=== PATIENT | female | born 1955 | race Caucasian/White ===

== ENCOUNTER 2016-08-07 15:33 | Emergency (ER) | payer MEDICAID ==
[2016-08-07 15:44] VITALS: TEMP 97.9
--- NOTE | 2016-08-07 15:52 | EDPHY ---
H & P Stated Complaint: insomnia/joint pain l knee pain(seen at for same) Time Seen by Provider: 08/07/16 15:51 HPI/ROS: CHIEF COMPLAINT: Right wrist pain, left knee pain HISTORY OF PRESENT ILLNESS: The patient presents to the ED with right wrist pain and left knee pain. She has a fairly complicated past medical history including a hypercoagulable state which she currently takes Coumadin for. She has had several weeks of insomnia. The patient did see her primary care provider [facility] who recommended she begin low dose of prednisone. She has not yet picked that medication up. Patient has no complaints of fever. She denies focal numbness. The patient denies pleuritic chest pain or difficulty breathing. She denies melena or bloody stool. REVIEW OF SYSTEMS: A comprehensive 10 point review of systems is otherwise negative aside from elements mentioned in the history of present illness. Source: Patient Exam Limitations: No limitations - Personal History Current Tetanus/Diphtheria Vaccine: Yes Tetanus Vaccine Date: 2010 - Medical/Surgical History Hx Asthma: No Hx Chronic Respiratory Disease: Yes Hx Diabetes: Yes Hx Cardiac Disease: No Hx Renal Disease: No Hx Cirrhosis: No Hx Alcoholism: No Hx HIV/AIDS: No Hx Splenectomy or Spleen Trauma: No Other PMH: narcoplepsy, degenerative disc disease, questionable history of lymphoma, COPD, PE, NIELS, ETOPIC PREG. - Social History Smoking Status: Never smoked - Physical Exam Exam: General Appearance: Alert, no distress Eyes: Pupils equal and round no pallor or injection ENT, Mouth: Mucous membranes moist Respiratory: There are no retractions, lungs are clear to auscultation Cardiovascular: Regular rate and rhythm Gastrointestinal: Abdomen is soft and nontender, no masses, bowel sounds normal Neurological: A&O, normal motor function, normal sensory exam, normal cranial nerves Skin: Warm and dry, no rashes Musculoskeletal: Neck is supple nontender Extremities: Tenderness to palpation right wrist, no associated swelling, erythema or limited range of motion noted. Small effusion left knee, normal range of motion, not warm, no evidence of cellulitis or septic arthritis. Constitutional: Initial Vital Signs Temperature (C) 36.6 C 08/07/16 15:41 Heart Rate 100 08/07/16 15:41 Respiratory Rate 20 08/07/16 15:41 Blood Pressure 107/95 H 08/07/16 15:41 O2 Sat (%) 97 08/07/16 15:41 O2 Delivery Mode Room Air Allergies/Adverse Reactions: Penicillins Allergy (Unknown, Verified 08/07/16 15:39) Sulfa (Sulfonamide Antibiotics) Allergy (Unknown, Verified 08/07/16 15:39) tramadol Allergy (Unknown, Verified 08/07/16 15:39) warfarin sodium [From Coumadin] Allergy (Unknown, Verified 08/07/16 15:39) albuterol Allergy (Verified 08/07/16 15:39) Iodinated Contrast Media - Oral and [IV Dye, Iodine Containing Contrast ] Allergy (Verified 08/07/16 15:39) NSAIDS (Non-Steroidal Anti-Inflamma [Nsaids] Allergy (Verified 08/07/16 15:39) Home Medications: Medication Instructions Recorded Lovenox 08/11/13 Omeprazole 08/11/13 Phenergan 08/11/13 Tylenol 08/11/13 Zofran 08/11/13 Metformin 1000 mg 08/07/16 Viamin B12 08/07/16 Vitamin D3 08/07/16 Wellbutrin 100mg (*) 08/07/16 Medical Decision Making - Diagnostics Imaging Results: Right wrist x-ray: Images reviewed by myself, negative for acute fracture. Left knee x-ray: Images reviewed by myself, negative for acute fracture. ED Course/Re-evaluation: The patient presents to the ED with complaints of atraumatic left knee and wrist pain. The patient has no clinical evidence of a septic arthritis. The patient is otherwise well-appearing at. X-rays demonstrate no evidence of an acute fracture. The patient's primary care provider has recommended that she begin a low dose of prednisone which I feel would be a reasonable next step. The patient will be instructed to take her medications as prescribed. She should follow up with her primary care provider for further evaluation. Differential Diagnosis: Differential diagnosis considered includes occult fracture, septic arthritis, osteoarthritis Departure - Departure Disposition: Home, Routine, Self-Care Clinical Impression: Chronic pain of left knee, Right wrist pain, Hypercoagulable state Condition: Good Instructions: Musculoskeletal Pain (ED) Additional Instructions: 1. Your x-rays demonstrate no evidence of significant arthritis or fracture. 2. Please take prednisone as directed by your primary care provider. 3. Please follow up with your regular physician at [facility] regarding your chronic lung disease. Referrals: RADHA FORD [Other] - As per Instructions
[2016-08-07 17:04] VITALS: BP 142/100; PULSE 91; RESP 16; O2SAT 94
== END 2016-08-07 17:05 | disposition home or self-care (01) ==
DX: M25.562 Pain in left knee (principal); M25.531 Pain in right wrist; G89.29 Other chronic pain; D68.59 Other primary thrombophilia; J44.9 Chronic obstructive pulmonary disease, unspecified; E11.9 Type 2 diabetes mellitus without complications; Z79.84 Long term (current) use of oral hypoglycemic drugs

== ENCOUNTER 2016-08-09 16:55 | Emergency (ER) | payer MEDICAID ==
--- NOTE | 2016-08-09 17:45 | EDPHY ---
H & P Time Seen by Provider: 08/09/16 17:25 HPI/ROS: CHIEF COMPLAINT: insomnia, leg swelling HISTORY OF PRESENT ILLNESS: 60-year-old female presents to the emergency department complaining difficulty sleeping for the past month. Patient reports that this happens every year. She was seen at [facility] 2 weeks ago and had bloods drawn and has not heard back from them with the results. Patient states she has left them any messages and has not had any return phone call. Patient was seen in the emergency department 2 days ago for the same complaint. Patient denies fevers or chills, no abdominal pain, no shortness of breath or chest pain she denies melena or bloody stool. Patient is also complaining bilateral lower leg swelling and tenderness. Patient has a history DVTs and PEs. She is on daily Lovenox. She is concerned she has a blood clot. REVIEW OF SYSTEMS: A comprehensive 10 point review of systems is otherwise negative aside from elements mentioned in the history of present illness. Smoking Status: Never smoked Physical Exam: Physical Exam Gen: Alert and Oriented, NAD HEENT: PERRL, moist mucous membranes NECK: no meningismus CV: regular rate and regular rhythm PULM: CTAB, no wheezes ABDOMEN: soft, non tender to palpation, BS present BACK: No CVA tenderness NEURO: Neurologically grossly intact EXTREMITIES: normal appearing, no joint swelling or erythema, full range of motion of all joints SKIN: No rash PSYCH: answers questions appropriately. Constitutional: Initial Vital Signs Temperature (C) 36.6 C 08/09/16 17:01 Heart Rate 94 08/09/16 17:01 Respiratory Rate 22 H 08/09/16 17:01 Blood Pressure 132/87 H 08/09/16 17:01 O2 Sat (%) 94 08/09/16 17:01 O2 Delivery Mode Room Air Allergies/Adverse Reactions: Penicillins Allergy (Unknown, Verified 08/09/16 16:59) Sulfa (Sulfonamide Antibiotics) Allergy (Unknown, Verified 08/09/16 16:59) tramadol Allergy (Unknown, Verified 08/09/16 16:59) warfarin sodium [From Coumadin] Allergy (Unknown, Verified 08/09/16 16:59) albuterol Allergy (Verified 08/09/16 16:59) Iodinated Contrast Media - Oral and [IV Dye, Iodine Containing Contrast ] Allergy (Verified 08/09/16 16:59) NSAIDS (Non-Steroidal Anti-Inflamma [Nsaids] Allergy (Verified 08/09/16 16:59) Home Medications: Medication Instructions Recorded Lovenox 08/11/13 Omeprazole 08/11/13 Phenergan 08/11/13 Tylenol 08/11/13 Zofran 08/11/13 Metformin 1000 mg 08/07/16 Viamin B12 08/07/16 Vitamin D3 08/07/16 Wellbutrin 100mg (*) 08/07/16 Prednisone 08/09/16 MDM/Departure - MDM Imaging Results: Imaging Impressions Extremity Venous Study 08/09/16 18:15 Impression: No evidence of deep vein thrombosis in either lower extremity. Results called and discussed with Imelda Egan NP on 08/09/2016 at 20:12 Imaging: Discussed imaging studies w/ school age program associate Radiologist ED Course/Re-evaluation: Ultrasound of bilateral lower extremities negative for DVT. I spoke with case management who attempted to call [facility] but they are closed for the evening. Case management will contact [facility] in the morning to schedule an appointment for the patient and they will call the patient with this appointment time. - Depart Disposition: Home, Routine, Self-Care Clinical Impression: Insomnia Qualifiers: Insomnia type: unspecified Qualified Code(s): G47.00 - Insomnia, unspecified Condition: Good Instructions: Insomnia (ED) Additional Instructions: There is no evidence of blood clots on the ultrasound of your legs. The hospice case manager from the hospital will call you tomorrow with your appointment at [facility]. Referrals: NIKKI FORD MD [Other] - As per Instructions
[2016-08-09 20:31] VITALS: BP 132/76; PULSE 82; RESP 17; TEMP 98.1; O2SAT 95
== END 2016-08-09 20:31 | disposition home or self-care (01) ==
DX: G47.00 Insomnia, unspecified (principal)

== ENCOUNTER 2016-08-20 03:30 | Emergency (ER) | payer MEDICAID ==
[2016-08-20] MEDS ORDERED: ONDANSETRON 4 MG/2 ML VIAL IVP ONE (03:40)
[2016-08-20] MEDS ORDERED: NS 1,000 ML IV ONE (03:40)
--- NOTE | 2016-08-20 03:43 | EDPHY ---
H & P HPI/ROS: HPI CHIEF COMPLAINT: Abdominal pain HISTORY OF PRESENT ILLNESS: This patient very pleasant 52-year-old female significant past medical history for pulmonary hypertension, heart failure, hypertension, pulmonary embolisms on Lovenox shots, she presents emergency room with abdominal pain. States for the past month she has been having trouble to keep food down with persistent nausea vomiting diffuse crampy colicky abdominal pain. She noticed some bruising around her umbilicus. She denies this being from her Lovenox shots. She was trying to get to [facility] this morning with the bus stop was unable to get on the bus due to a passed issue she decided to call 911 instead was brought to the emergency room at [facility] for abdominal pain. She denies fever. Chest pain or shortness of breath. Main complaint is diffuse colicky abdominal pain in arm able to tolerate p.o. x1 month. States she had a bowel movement 4 days ago. Of note she additionally tells me she was at [facility] on the 10th for "fluid on her lungs." Denies history of stroke or heart attack. Past Medical History: Pulmonary hypertension, diastolic heart failure, pulmonary embolism, hypertension, ?stage 4 lymphoma. Past Surgical History: Gallbladder removal, ectopic . Social History: Denies daily use of drugs alcohol tobacco products lives locally here [place] Family History: Noncontributory ROS REVIEW OF SYSTEMS: A comprehensive 10 point review of systems is otherwise negative aside from elements mentioned in the history of present illness. Exam Constitutional triage nursing summary reviewed, vital signs reviewed, awake/ alert. Eyes normal conjunctivae and sclera, EOMI, PERRLA. HENT normal inspection, atraumatic, moist mucus membranes, no epistaxis, neck supple/ no meningismus, no raccoon eyes. Respiratory clear to auscultation bilaterally, normal breath sounds, no respiratory distress, no wheezing. Cardiovascular rate normal, regular rhythm, no murmur, no edema, distal pulses normal. Gastrointestinal I do not appreciate tenderness on exam, around her umbilicus is there is ecchymosis, no signs of cellulitis or infection no abscess, no induration, soft, non-tender, no rebound, no guarding, normal bowel sounds, no distension, no pulsatile mass. Genitourinary no CVA tenderness. Musculoskeletal no midline vertebral tenderness, full range of motion, no calf swelling, no tenderness of extremities, no meningismus, good pulses, neurovascularly intact. Skin pink, warm, & dry, no rash, skin atraumatic. Neurologic awake, alert and oriented x 3, AAOx3, moves all 4 extremities equally, motor intact, sensory intact, CN II-XII intact, normal cerebellar, normal vision, normal speech. Psychiatric normal mood/affect. Heme/Lymph/Immune no lymphadenopathy. Differential diagnosis includes but is not limited to and in no particular order : Bowel obstruction, appendicitis, gallbladder disease, diverticulitis, colitis , enteritis, perforated viscus, gastritis, GERD, esophagitis, urinary tract infection, pyelonephritis, kidney stones Medical Decision Making: Plan for this patient IV establishment, blood work, CT scan abdomen pelvis will check blood work of abdomen labs, urinalysis as well. Re-evaluation: CT scan of the abdomen pelvis with IV contrast. The results of the study are negative for acute intra-abdominal acute pathology or inflammation constipation present. The study was read by Dr. Tomas. I viewed the images myself on the PACS system. [id number]: Re-evaluation at this time abdomen remained soft nontender. She is drinking without any difficulty. No vomiting. Vital signs are stable. Blood work reviewed is normal. His CT scan abdomen pelvis with IV contrast shows no acute intra-abdominal inflammatory process. I do recommend that she follows up with the primary care doctor as always return emergency room if there is any worsening symptoms questions or concerns. I have no evidence of intra- abdominal acute process. Blood work reassuring, CT scan reassuring. Urine dip was negative. Will outpatient go home given her abdomen is soft she is drinking she is agreeable with this plan. Source: Patient - Personal History Tetanus Vaccine Date: 2010 - Medical/Surgical History Hx Asthma: No Hx Chronic Respiratory Disease: Yes Hx Diabetes: Yes Hx Cardiac Disease: No Hx Renal Disease: No Hx Cirrhosis: No Hx Alcoholism: No Hx HIV/AIDS: No Hx Splenectomy or Spleen Trauma: No Other PMH: narcoplepsy, degenerative disc disease, questionable history of lymphoma, COPD, PE, NIELS, ETOPIC PREG. - Social History Smoking Status: Never smoked Constitutional: Initial Vital Signs Temperature (C) 36.4 C 08/20/16 03:30 Heart Rate 92 08/20/16 03:30 Respiratory Rate 20 08/20/16 03:30 Blood Pressure 133/90 H 08/20/16 03:30 O2 Sat (%) 92 08/20/16 03:30 O2 Delivery Mode Room Air O2 (L/minute) 2 Allergies/Adverse Reactions: Penicillins Allergy (Unknown, Verified 08/09/16 16:59) Sulfa (Sulfonamide Antibiotics) Allergy (Unknown, Verified 08/09/16 16:59) tramadol Allergy (Unknown, Verified 08/09/16 16:59) warfarin sodium [From Coumadin] Allergy (Unknown, Verified 08/09/16 16:59) albuterol Allergy (Verified 08/09/16 16:59) Iodinated Contrast Media - Oral and [IV Dye, Iodine Containing Contrast ] Allergy (Verified 08/09/16 16:59) NSAIDS (Non-Steroidal Anti-Inflamma [Nsaids] Allergy (Verified 08/09/16 16:59) Home Medications: Medication Instructions Recorded Lovenox 08/11/13 Omeprazole 08/11/13 Phenergan 08/11/13 Tylenol 08/11/13 Zofran 08/11/13 Viamin B12 08/07/16 Vitamin D3 08/07/16 Wellbutrin 100mg (*) 08/07/16 Ativan 08/20/16 Flexeril 08/20/16 Insulin Regular, Human 08/20/16 Prevalite Powder 08/20/16 Medical Decision Making - Data Points Laboratory Results: Laboratory Results 08/20/16 04:30 08/20/16 04:20 08/20/16 08/20/16 08/20/16 04:30 04:30 04:30 WBC 6.76 10^3/uL 10^3/uL (3.80-9.50) RBC 4.24 10^6/uL 10^6/uL (4.18-5.33) Hgb 13.1 g/dL g/dL (12.6-16.3) POC Hgb 13.3 gm/dL gm/dL (12.3-15.9) Hct 39.0 % % (38.0-47.0) POC Hct 39 % % (35.5-47.5) MCV 92.0 fL fL (81.5-99.8) MCH 30.9 pg pg (27.9-34.1) MCHC 33.6 g/dL g/dL (32.4-36.7) RDW 13.4 % % (11.5-15.2) Plt Count 253 10^3/uL 10^3/uL (150-400) MPV 9.2 fL fL (8.7-11.7) Neut % (Auto) 53.1 % % (39.3-74.2) Lymph % (Auto) 35.9 % % (15.0-45.0) [place] % (Auto) 7.2 % % (4.5-13.0) Eos % (Auto) 2.5 % % (0.6-7.6) Baso % (Auto) 0.6 % % (0.3-1.7) Nucleat RBC Rel Count 0.0 % % (0.0-0.2) Absolute Neuts (auto) 3.58 10^3/uL 10^3/uL (1.70-6.50) Absolute Lymphs (auto) 2.43 10^3/uL 10^3/uL (1.00-3.00) Absolute Monos (auto) 0.49 10^3/uL 10^3/uL (0.30-0.80) Absolute Eos (auto) 0.17 10^3/uL 10^3/uL (0.03-0.40) Absolute Basos (auto) 0.04 10^3/uL 10^3/uL (0.02-0.10) Absolute Nucleated RBC 0.00 10^3/uL 10^3/uL (0-0.01) Immature Gran % 0.7 % % (0.0-1.1) Immature Gran # 0.05 10^3/uL 10^3/uL (0.00-0.10) PT 13.8 SEC SEC (12.0-15.0) INR 1.07 (0.83-1.16) APTT 25.8 SEC SEC (23.0-38.0) VBG Lactic Acid POC Sodium 143 mEq/L mEq/L (134-144) Sodium POC Potassium 3.5 mEq/L mEq/L (3.3-5.0) Potassium POC Chloride 102 mEq/L mEq/L (96-108) Chloride Carbon Dioxide Anion Gap POC BUN 17 mg/dL mg/dL (7-23) BUN Creatinine POC Creatinine 0.6 mg/dL mg/dL (0.6-1.2) Estimated GFR Glucose POC Glucose 202 mg/dL H mg/dL (70-100) Calcium Total Bilirubin Conjugated Bilirubin Unconjugated Bilirubin AST ALT Alkaline Phosphatase Total Protein Albumin Lipase 08/20/16 08/20/16 04:30 04:20 WBC RBC Hgb POC Hgb Hct POC Hct MCV MCH MCHC RDW Plt Count MPV Neut % (Auto) Lymph % (Auto) [place] % (Auto) Eos % (Auto) Baso % (Auto) Nucleat RBC Rel Count Absolute Neuts (auto) Absolute Lymphs (auto) Absolute Monos (auto) Absolute Eos (auto) Absolute Basos (auto) Absolute Nucleated RBC Immature Gran % Immature Gran # PT INR APTT VBG Lactic Acid 1.4 mmol/L mmol/L (0.7-2.1) POC Sodium Sodium 139 mEq/L mEq/L (134-144) POC Potassium Potassium 3.8 mEq/L mEq/L (3.5-5.2) POC Chloride Chloride 105 mEq/L mEq/L (97-110) Carbon Dioxide 26 mEq/l mEq/l (22-31) Anion Gap 8 mEq/L mEq/L (8-16) POC BUN BUN 17 mg/dL mg/dL (7-23) Creatinine 0.6 mg/dL mg/dL (0.6-1.0) POC Creatinine Estimated GFR > 60 Glucose 201 mg/dL H mg/dL (70-100) POC Glucose Calcium 8.6 mg/dL mg/dL (8.5-10.4) Total Bilirubin 0.5 mg/dL mg/dL (0.1-1.4) Conjugated Bilirubin 0.3 mg/dL mg/dL (0.0-0.5) Unconjugated Bilirubin 0.2 mg/dL mg/dL (0.0-1.1) AST 38 IU/L IU/L (14-46) ALT 49 IU/L IU/L (9-52) Alkaline Phosphatase 80 IU/L IU/L (38-126) Total Protein 6.4 g/dL g/dL (6.3-8.2) Albumin 3.5 g/dL g/dL (3.5-5.0) Lipase 83.0 IU/L IU/L (23-300) Medications Given: Discontinued Medications Hydrocodone Bitart/Acetaminophen ([place] 5/325) 1 tab PO EDNOW ONE Stop: 08/20/16 04:26 Last Admin: 08/20/16 04:32 Dose: 1 tab Diphenhydramine HCl (Benadryl Injection) 25 mg IVP EDNOW ONE Stop: 08/20/16 03:47 Last Admin: 08/20/16 04:32 Dose: 25 mg Sodium Chloride (Ns) 1,000 mls @ 0 mls/hr IV ONCE ONE PRN Reason: Wide Open Stop: 08/20/16 03:41 Last Admin: 08/20/16 04:30 Dose: 1,000 mls Ondansetron HCl (Zofran) 4 mg IVP EDNOW ONE Stop: 08/20/16 03:41 Last Admin: 08/20/16 04:30 Dose: 4 mg Point of Care Test Results: 08/20/16 04:30 POC Sodium 143 POC Potassium 3.5 POC Chloride 102 POC BUN 17 POC Creatinine 0.6 POC Glucose 202 H Departure - Departure Disposition: Home, Routine, Self-Care Clinical Impression: Abdominal pain Qualifiers: Abdominal location: generalized Qualified Code(s): R10.84 - Generalized abdominal pain Condition: Good Instructions: Acute Abdominal Pain (ED) Additional Instructions: 1. [place] diet for next 24- forty eight hours. 2. Return emergency room if you have any worsening symptoms questions or concerns. Referrals: Patient,NotPresent [Unknown] - As per Instructions
[2016-08-20] MEDS ORDERED: HYDROCODONE/APAP 5/325 TAB PO ONE (04:25)
[2016-08-20] MEDS ORDERED: IOPAMIDOL (ISOVUE-300) 100 ML BTL ONE (04:34)
[2016-08-20 04:43] LABS: % IMMATURE GRANULYOCYTES 0.7 % (0.0-1.1); ABSOLUTE IMMATURE GRANULOCYTES 0.05 10^3/uL (0.00-0.10); ADD DIFF? NO; ADD MORPH? NO; ADD SCAN? NO; ATYPICAL LYMPHOCYTE FLAG 20 (0-99); FRAGMENT RBC FLAG 0 (0-99); HEMOGLOBIN 13.1 g/dL (12.6-16.3); LEFT SHIFT FLG 0 (0-99); LIPEMIA HEMOLYSIS FLAG 80 (0-99); MEAN CELL HEMOGLOBIN 30.9 pg (27.9-34.1); MEAN CELL HEMOGLOBIN CONCENTR. 33.6 g/dL (32.4-36.7); MEAN PLATELET VOLUME 9.2 fL (8.7-11.7); PLATELET CLUMPS FLAG 10 (0-99); PLATELET COUNT 253 10^3/uL (150-400); RED BLOOD CELL COUNT 4.24 10^6/uL (4.18-5.33); RED CELL DISTRIBUTION WIDTH 13.4 % (11.5-15.2)
[2016-08-20 04:52] LABS: INR 1.07 (0.83-1.16); PROTIME(PATIENT) 13.8 SEC (12.0-15.0)
[2016-08-20 04:53] LABS: APTT 25.8 SEC (23.0-38.0)
[2016-08-20 05:00] LABS: ALANINE AMINOTRANSFERASE 49 IU/L (9-52); ALBUMIN 3.5 g/dL (3.5-5.0); ALKALINE PHOSPHATASE 80 IU/L (38-126); ANION GAP 8 mEq/L (8-16); ASPARTATE AMINOTRANSFERASE 38 IU/L (14-46); BILIRUBIN,TOTAL 0.5 mg/dL (0.1-1.4); BILIRUBIN-CONJUGATED 0.3 mg/dL (0.0-0.5); BILIRUBIN-UNCONJUGATED 0.2 mg/dL (0.0-1.1); CALCIUM 8.6 mg/dL (8.5-10.4); CARBON DIOXIDE 26 mEq/l (22-31); CHLORIDE 105 mEq/L (97-110); CREATININE 0.6 mg/dL (0.6-1.0); GLOMERULAR FILTRATION RATE > 60; GLUCOSE 201 mg/dL (70-100); POTASSIUM 3.8 mEq/L (3.5-5.2); SODIUM 139 mEq/L (134-144); TOTAL PROTEIN 6.4 g/dL (6.3-8.2)
[2016-08-20 06:22] VITALS: BP 158/88; PULSE 88; RESP 18; O2SAT 94
[2016-08-20 06:23] VITALS: TEMP 98.6
== END 2016-08-20 06:32 | disposition home or self-care (01) ==
LOC: EDUNIT#
DX: R10.84 Generalized abdominal pain (principal); J44.9 Chronic obstructive pulmonary disease, unspecified; E11.9 Type 2 diabetes mellitus without complications; Z79.4 Long term (current) use of insulin
CPT/HCPCS: 82947-QW; 96374; J1200; J2405; Q9967

== ENCOUNTER 2016-08-28 12:06 | Emergency (ER) | payer MEDICAID ==
[2016-08-28 12:31] VITALS: RESP 16; TEMP 97.2
--- NOTE | 2016-08-28 12:41 | EDPHY ---
HPI/HX/ROS/PE/MDM Narrative: CHIEF COMPLAINT: Syncopes HISTORY OF PRESENT ILLNESS: The patient is a 60 y/o female, with a history of personality disorder, arriving via EMS complaining of multiple syncopes or "black out" episodes over the last 2 days. She reports she has a history that includes stage 4 lymphoma, COPD, pulmonary hypertension, and diabetes. She says multiple times over the last couple days she has been "losing time;" she states , "I'd be present and then it would be an hour later" while sitting. She denies history of seizures. She denies chest pain, fever, or worse than normal dyspnea. Patient is a poor historian, quite tangential, and frequently discusses events from many years previously. She has multiple other complaints including resolved skin peeling and what she describes as a yeast infection. She states, "my whole body starting smelling like yeast" this morning, then she coated her body with "natural purple hair dye " and those symptoms resolved. She also states, "I felt like my head was filling up with lymph and my eyelids felt thicker," but denies headache. She also notes she's had leg swelling since August as well as ongoing polyuria without dysuria. She states she was recently evaluated at [facility] ED for abdominal pain and menstrual bleeding despite being postmenopausal, but those symptoms have since resolved. Patient asked us to perform a test. No fever, chills, chest pain, palpitations, vomiting, diarrhea, headache, lightheadedness. REVIEW OF SYSTEMS: Aside from elements discussed in the HPI, a comprehensive 10-point review of systems was reviewed and is negative. PAST MEDICAL HISTORY: Reported stage 4 lymphoma - no recent oncologist evaluation or medications. Diabetes type II, personality disorder, possible CHF , pulmonary hypertension, DVT, hiatal hernia, GI bleed, COPD, sleep apnea, degenerative disc disease, TB and tuberculosis in 2007. SOCIAL HISTORY: Denies recent alcohol or tobacco use. Lives in [place]. Oncologist: Brannon Prior medical records reviewed including admission 02/02/2013 for GI bleed and ED visit 08/20/16 for abdominal pain. VITAL SIGNS: Reviewed by me GENERAL: Slightly overweight, purple hair, wearing multiple layers of clothing , resting comfortably in no respiratory distress. HEENT: Atraumatic. Eyes: No icterus, no injection. Mouth: Slightly dry mucous membranes. No erythema or lesions. Neck: supple with no adenopathy. LUNGS: Clear to auscultation bilaterally, no wheezes, rhonchi or rales. CARDIAC: Regular rate and rhythm, no rubs, murmurs or gallops. ABDOMEN: Soft, obese, largely benign, nondistended, bowel sounds normal. BACK: Mild left flank tenderness. EXTREMITIES: No trauma noted. Fingers blue with hair dye. Bilateral 2+ pitting edema to lower legs from ankles to proximal calf with warmth. Range of motion is normal throughout. NEURO: Alert and oriented, grossly nonfocal. SKIN: Warm and dry, no rash. PSYCHIATRIC: Normal mentation, no agitation. Portions of this note were transcribed by a medical lab specialist. I personally performed a history, physical exam, medical decision making, and confirmed accuracy of information the transcribed note. ED Course: This is a difficult to assess 60 y/o female with multiple reported medical conditions with limited supporting documents including stage 4 lymphoma that she is not currently treating who presents after repeated "black out" episodes over the last couple days. An admission note from 02/04/13 states patient has personality disorder. She has additional chronic complaints in various stages of acuity including worsening bilateral leg swelling. Plan for syncope and leg swelling work ups as well as case management consult. IV established. Labs drawn including CBC, CHEM, lipase, LFT, BHCG, troponin, d-dimer. Patient placed on lunchroom monitor. Bilateral leg US and chest x-ray ordered. The 12 lead EKG was interpreted by myself. Sinus rate 68. See hard copy and/or "tracemaster" electronic copy for interpretation. Chest x-ray shows no acute process. Stable hiatal hernia. 1340: Per Dr. Williamson, US shows partial, nonocclusive thrombus in right popliteal vein. Left leg does not have DVT. 1440: Reassessed patient and discussed work up with her. I discussed the dosing of her Lovenox. Patient tells me she takes "400 mg of Lovenox", and tells me that she uses until she feels like "her blood is thin enough." Patient received Lovenox 90mg subq and was given a prescription for Lovenox 90 mg twice daily. She was seen by the pillowcase folder, Nona. Patient has an appointment tomorrow at [facility]. The importance of follow-up was stressed with the patient. MDM: Differential diagnosis for the patient's complaints of syncope was considered including but not limited to vasovagal syncope, arrhythmia, dehydration, and blood loss. Differential diagnosis for the patient's increased lower extremity edema was considered including but not limited to DVT, congestive heart failure , lymphedema, cellulitis. - Data Points Imaging Results: Imaging Impressions Chest X-Ray 08/28/16 12:35 Impression: Stable very large left diaphragmatic hernia nothing acute identified.. Extremity Venous Study 08/28/16 12:36 Impression: 1. Positive right leg deep venous thrombosis with partial nonocclusive thrombus in the right popliteal vein. 2. No deep venous thrombosis left leg. Findings and recommendations discussed with Emergency Department physician, Aura Snowden MD, at 1340 hours 08/28/2016. Final report concurs with initial preliminary interpretation. Imaging: Discussed imaging studies w/ manager call Radiologist, I viewed and interpreted images myself Laboratory Results: Laboratory Results 08/28/16 12:55 08/28/16 12:55 08/28/16 08/28/16 08/28/16 12:55 12:55 12:55 WBC RBC Hgb Hct MCV MCH MCHC RDW Plt Count MPV Neut % (Auto) Lymph % (Auto) Archer % (Auto) Eos % (Auto) Baso % (Auto) Nucleat RBC Rel Count Absolute Neuts (auto) Absolute Lymphs (auto) Absolute Monos (auto) Absolute Eos (auto) Absolute Basos (auto) Absolute Nucleated RBC Immature Gran % Immature Gran # D-Dimer 0.41 ug/mLFEU ug/mLFEU (0.00-0.50) Sodium 140 mEq/L mEq/L (134-144) Potassium 3.9 mEq/L mEq/L (3.5-5.2) Chloride 106 mEq/L mEq/L (97-110) Carbon Dioxide 24 mEq/l mEq/l (22-31) Anion Gap 10 mEq/L mEq/L (8-16) BUN 11 mg/dL mg/dL (7-23) Creatinine 0.5 mg/dL L mg/dL (0.6-1.0) Estimated GFR > 60 Glucose 138 mg/dL H mg/dL (70-100) Calcium 8.8 mg/dL mg/dL (8.5-10.4) Total Bilirubin 0.6 mg/dL mg/dL (0.1-1.4) Conjugated Bilirubin 0.4 mg/dL mg/dL (0.0-0.5) Unconjugated Bilirubin 0.2 mg/dL mg/dL (0.0-1.1) AST 33 IU/L IU/L (14-46) ALT 48 IU/L IU/L (9-52) Alkaline Phosphatase 80 IU/L IU/L (38-126) Troponin I < 0.012 ng/mL ng/mL (0-0.034) Total Protein 6.7 g/dL g/dL (6.3-8.2) Albumin 4.0 g/dL g/dL (3.5-5.0) Lipase 75.0 IU/L IU/L (23-300) Beta HCG, Qual NEGATIVE 08/28/16 12:55 WBC 6.03 10^3/uL 10^3/uL (3.80-9.50) RBC 4.06 10^6/uL L 10^6/uL (4.18-5.33) Hgb 12.6 g/dL g/dL (12.6-16.3) Hct 37.1 % L % (38.0-47.0) MCV 91.4 fL fL (81.5-99.8) MCH 31.0 pg pg (27.9-34.1) MCHC 34.0 g/dL g/dL (32.4-36.7) RDW 13.9 % % (11.5-15.2) Plt Count 276 10^3/uL 10^3/uL (150-400) MPV 8.9 fL fL (8.7-11.7) Neut % (Auto) 54.7 % % (39.3-74.2) Lymph % (Auto) 33.3 % % (15.0-45.0) Archer % (Auto) 8.1 % % (4.5-13.0) Eos % (Auto) 3.2 % % (0.6-7.6) Baso % (Auto) 0.5 % % (0.3-1.7) Nucleat RBC Rel Count 0.0 % % (0.0-0.2) Absolute Neuts (auto) 3.30 10^3/uL 10^3/uL (1.70-6.50) Absolute Lymphs (auto) 2.01 10^3/uL 10^3/uL (1.00-3.00) Absolute Monos (auto) 0.49 10^3/uL 10^3/uL (0.30-0.80) Absolute Eos (auto) 0.19 10^3/uL 10^3/uL (0.03-0.40) Absolute Basos (auto) 0.03 10^3/uL 10^3/uL (0.02-0.10) Absolute Nucleated RBC 0.00 10^3/uL 10^3/uL (0-0.01) Immature Gran % 0.2 % % (0.0-1.1) Immature Gran # 0.01 10^3/uL 10^3/uL (0.00-0.10) D-Dimer Sodium Potassium Chloride Carbon Dioxide Anion Gap BUN Creatinine Estimated GFR Glucose Calcium Total Bilirubin Conjugated Bilirubin Unconjugated Bilirubin AST ALT Alkaline Phosphatase Troponin I Total Protein Albumin Lipase Beta HCG, Qual Medications Given: Discontinued Medications Enoxaparin Sodium (Lovenox) 90 mg SC ONCE ONE Stop: 08/28/16 15:16 Last Admin: 08/28/16 16:13 Dose: 90 mg Fentanyl (Sublimaze) 50 mcg IVP EDNOW ONE Stop: 08/28/16 14:01 Last Admin: 08/28/16 14:00 Dose: 50 mcg General Time Seen by Provider: 08/28/16 12:13 Initial Vital Signs: Initial Vital Signs Temperature (C) 36.2 C 08/28/16 12:28 Heart Rate 79 08/28/16 12:28 Respiratory Rate 16 08/28/16 12:28 Blood Pressure 118/88 H 08/28/16 12:28 O2 Sat (%) 94 08/28/16 12:28 O2 Delivery Mode Room Air Allergies/Adverse Reactions: Penicillins Allergy (Unknown, Verified 08/09/16 16:59) Sulfa (Sulfonamide Antibiotics) Allergy (Unknown, Verified 08/09/16 16:59) tramadol Allergy (Unknown, Verified 08/09/16 16:59) warfarin sodium [From Coumadin] Allergy (Unknown, Verified 08/09/16 16:59) albuterol Allergy (Verified 08/09/16 16:59) Iodinated Contrast Media - Oral and [IV Dye, Iodine Containing Contrast ] Allergy (Verified 08/09/16 16:59) NSAIDS (Non-Steroidal Anti-Inflamma [Nsaids] Allergy (Verified 08/09/16 16:59) Home Medications: Medication Instructions Recorded Lovenox 08/11/13 Omeprazole 08/11/13 Phenergan 08/11/13 Tylenol 08/11/13 Zofran 08/11/13 Viamin B12 08/07/16 Vitamin D3 08/07/16 Wellbutrin 100mg (*) 08/07/16 Ativan 08/20/16 Flexeril 08/20/16 Insulin Regular, Human 08/20/16 Prevalite Powder 08/20/16 Enoxaparin [Lovenox 100 MG (*)] 90 mg SQ BID #60 syr 08/28/16 Departure - Departure Disposition: Home, Routine, Self-Care Clinical Impression: Thrombosis of right popliteal vein, partial, non occlusive Syncope Qualifiers: Syncope type: unspecified Qualified Code(s): R55 - Syncope and collapse Condition: Good Instructions: Enoxaparin (By injection), Syncope (ED), Leg Edema (ED) Additional Instructions: 1. Take Lovenox as prescribed. 2. Follow up with [facility]. You have an appointment tomorrow 08/29 at 10:30am. You have been provided a bus pass to ensure you can get to the appointment. If you are unable to make it to the appointment, please call and reschedule - [phone] 3. Return to the ED for chest pain, shortness of breath, or other worsening of condition. Referrals: Patient,NotPresent [Unknown] - As per Instructions [facility],. [Clinic] - As per Instructions Prescriptions: Enoxaparin [Lovenox 100 MG (*)] 90 mg SQ BID #60 syr Report Scribed for: Aura Snowden Report Scribed by: Andie Antonio Date of Report: 08/28/16 Time of Report: 12:42
[2016-08-28 13:05] LABS: % IMMATURE GRANULYOCYTES 0.2 % (0.0-1.1); ABSOLUTE IMMATURE GRANULOCYTES 0.01 10^3/uL (0.00-0.10); ADD DIFF? NO; ADD MORPH? NO; ADD SCAN? NO; ATYPICAL LYMPHOCYTE FLAG 30 (0-99); FRAGMENT RBC FLAG 0 (0-99); HEMATOCRIT 37.1 % (38.0-47.0); HEMOGLOBIN 12.6 g/dL (12.6-16.3); LEFT SHIFT FLG 0 (0-99); LIPEMIA HEMOLYSIS FLAG 90 (0-99); MEAN CELL VOLUME 91.4 fL (81.5-99.8); MEAN PLATELET VOLUME 8.9 fL (8.7-11.7); PLATELET CLUMPS FLAG 0 (0-99); PLATELET COUNT 276 10^3/uL (150-400); RED BLOOD CELL COUNT 4.06 10^6/uL (4.18-5.33); RED CELL DISTRIBUTION WIDTH 13.9 % (11.5-15.2)
[2016-08-28] MEDS ORDERED: fentaNYL 100 MCG/2 ML INJ ONE (13:13)
[2016-08-28 13:18] LABS: ALANINE AMINOTRANSFERASE 48 IU/L (9-52); ALKALINE PHOSPHATASE 80 IU/L (38-126); ANION GAP 10 mEq/L (8-16); ASPARTATE AMINOTRANSFERASE 33 IU/L (14-46); BILIRUBIN,TOTAL 0.6 mg/dL (0.1-1.4); BILIRUBIN-CONJUGATED 0.4 mg/dL (0.0-0.5); BILIRUBIN-UNCONJUGATED 0.2 mg/dL (0.0-1.1); CALCIUM 8.8 mg/dL (8.5-10.4); CARBON DIOXIDE 24 mEq/l (22-31); CHLORIDE 106 mEq/L (97-110); CREATININE 0.5 mg/dL (0.6-1.0); GLOMERULAR FILTRATION RATE > 60; GLUCOSE 138 mg/dL (70-100); POTASSIUM 3.9 mEq/L (3.5-5.2); SODIUM 140 mEq/L (134-144); TOTAL PROTEIN 6.7 g/dL (6.3-8.2)
[2016-08-28 13:30] LABS: TROPONIN I < 0.012 ng/mL (0-0.034)
--- NOTE | 2016-08-28 13:33 | CPEKG ---
Heart Rate: 68 RR Interval: 882 P-R Interval: 164 QRSD Interval: 82 QT Interval: 424 QTC Interval: 451 P Court[place]: 46 QRS [place]: 53 T Wave [place]: 53 EKG Severity - NORMAL ECG - EKG Impression: SINUS RHYTHM Electronically Signed By: Aura Snowden 28-Aug-2016 15:28:41
[2016-08-28] MEDS ORDERED: fentaNYL 100 MCG/2 ML INJ IVP ONE (14:00)
[2016-08-28] MEDS ORDERED: ENOXAPARIN 100 MG/ML SYR SC ONE (15:15)
[2016-08-28 16:13] VITALS: BP 119/95; PULSE 95; O2SAT 93
== END 2016-08-28 16:12 | disposition home or self-care (01) ==
LOC: EDUNIT#
DX: R55 Syncope and collapse (principal); I82.431 Acute embolism and thrombosis of right popliteal vein; E11.9 Type 2 diabetes mellitus without complications; J44.9 Chronic obstructive pulmonary disease, unspecified; Z85.72 Personal history of non-Hodgkin lymphomas
CPT/HCPCS: 96374; J1650; J3010

== ENCOUNTER 2016-08-30 20:56 | Emergency (ER) | payer MEDICAID ==
[2016-08-30 21:05] VITALS: BP 108/82; PULSE 95; RESP 18; TEMP 97.5; O2SAT 93
--- NOTE | 2016-08-30 22:28 | EDPHY ---
H & P Time Seen by Provider: 08/30/16 21:30 HPI/ROS: HPI Legs swollen and itchy. 60-year-old female by private vehicle from her senior assisted living home. She has a recent history of multiple visits to our emergency department with multiple complaints over the last 1-2 weeks. She was seen just yesterday or emergency department with complaint of swelling and discomfort in her right lower extremity. She was diagnosed with a DVT of her popliteal vein was nonocclusive. She was set up with Lovenox for treatment. She reports that she has taken her Lovenox. Her main complaint tonight is itchiness involving both lower extremities. She is asking for some steroid cream to help with this itchiness. On review of her medical records she has presented with multiple complaints including that she is sick from lymphoma and syncope case management has visited with her. Please see their notes from August 29 and . There has been considerable effort to get her to her follow-up appointments which she misses for what she explains to me at various reasons. With her nurse present, she became hostile and combative because I was asking her why she had not followed up with her various outpatient appointments despite considerable effort on the part of others to ensure that she does so. She then told me that she wanted to leave the emergency department. ROS: Constitutional: No fever, no chills. Chronic weakness. Eyes: No discharge. No changes in vision. ENT: No sore throat. No nasal congestion or rhinorrhea. Respiratory: No cough. No shortness of breath. Cardiac: No chest pain, no palpitations. Gastrointestinal: No abdominal pain, she complains of nausea but no vomiting, no diarrhea. Genitourinary: No hematuria. No dysuria or increased frequency with urination. Musculoskeletal: No back pain. No neck pain. As above. Skin: As above. She denies rashes. Neurological: No headache. No focal weakness or altered sensation. Past medical history: Social history: Physical Exam: General Appearance: Alert, no distress. This patient is responding to questions appropriately and in full sentences. This patient appears well- hydrated and well-nourished. Eyes: Pupils equal and round no pallor or injection. No lid edema, erythema or injection. ENT, Mouth: Mucous membranes are moist. The pharyngeal tissues are unremarkable. No edema or swelling. No asymmetry suggestive of abscess. No erythema or exudates. Respiratory: There are no retractions, lungs are clear to auscultation with good air movement bilaterally. Cardiovascular: Regular rate and rhythm. No murmur. Gastrointestinal: Abdomen is soft and nontender, no masses, bowel sounds normal. No focal tenderness at McBurney's point. No Stephenson sign. Neurological: Motor sensory function is grossly intact. Cranial nerves are normal. Skin: Warm and dry, no rashes. Musculoskeletal: Neck is supple and nontender. Increased right lower extremity swelling verses left lower extremity with and early venous stasis dermatitis involving both legs. There is no significant erythema or warmth indicative of cellulitis on examination of her lower extremities. Lower extremities are neurovascularly intact. Psychiatric: No agitation. No depression. Database: EKG: Imaging: Procedures: Emergency department course: After my evaluation I questioned her as to why she keeps missing her follow-up appointments. She 1st told me because she was going camping. Then she told me her car broke down followed by her phone ran out of batteries. I have reviewed her vital signs. They are normal. I feel that serious bacterial infection is unlikely. I do not feel that she requires admission at this time. She has Lovenox which was provided to her during her visit to the emergency department yesterday. She is well connective into our outpatient care system. I will send her home with 1% hydrocortisone cream to be applied to her lower extremities for her pruritus twice daily over the next 7-10 days. I stressed the importance that she follow up with her primary care physicians at [facility] for re-evaluation. I explained that I would be back to talk to her further. 10:45 p.m., I was informed by the nursing staff that she had left the emergency department prior to completion of her evaluation. Differential Diagnosis: The differential diagnosis on this patient includes but is not limited to venous stasis dermatitis of lower extremities, history of right lower extremity nonocclusive DVT. Cellulitis, sepsis, serious bacterial infection unlikely. This represents a partial list of diagnoses considered. These considerations are based on history, physical exam, past history and reassessment. Smoking Status: Never smoked Constitutional: Initial Vital Signs Temperature (C) 36.4 C 08/30/16 20:59 Heart Rate 95 08/30/16 20:59 Respiratory Rate 18 08/30/16 20:59 Blood Pressure 108/82 H 08/30/16 20:59 O2 Sat (%) 93 08/30/16 20:59 O2 Delivery Mode Room Air Allergies/Adverse Reactions: Penicillins Allergy (Unknown, Verified 08/09/16 16:59) Sulfa (Sulfonamide Antibiotics) Allergy (Unknown, Verified 08/09/16 16:59) tramadol Allergy (Unknown, Verified 08/09/16 16:59) warfarin sodium [From Coumadin] Allergy (Unknown, Verified 08/09/16 16:59) albuterol Allergy (Verified 08/09/16 16:59) Iodinated Contrast Media - Oral and [IV Dye, Iodine Containing Contrast ] Allergy (Verified 08/09/16 16:59) metoclopramide [From Reglan] Allergy (Verified 08/30/16 21:05) NSAIDS (Non-Steroidal Anti-Inflamma [Nsaids] Allergy (Verified 08/09/16 16:59) Home Medications: Medication Instructions Recorded Omeprazole 08/11/13 Phenergan 08/11/13 Tylenol 08/11/13 Zofran 08/11/13 Viamin B12 08/07/16 Vitamin D3 08/07/16 Wellbutrin 100mg (*) 08/07/16 Ativan 08/20/16 Flexeril 08/20/16 Insulin Regular, Human 08/20/16 Prevalite Powder 08/20/16 Enoxaparin [Lovenox 100 MG (*)] 90 mg SQ BID #60 syr 08/28/16 Cortisone 08/30/16 Flonase Nasal [place] 08/30/16 Hydrocortisone 1% [Hydrocortisone 14 gm TP BID #1 cream 08/30/16 1% cream (*)] TYLENOL #3 08/30/16 Departure - Departure Disposition: Against Medical Advice Clinical Impression: Right leg DVT, Acute venous stasis dermatitis of both legs, Venous stasis dermatitis of both lower extremities Condition: Good Instructions: Deep Venous Thrombosis (ED), Stasis Dermatitis (ED) Additional Instructions: Read and follow provided instructions. Follow-up with your primary care physician at [facility] as discussed for re-evaluation and ongoing management of your healthcare needs within the next 1- 2 days. Take medication as prescribed. Hydrocortisone 1% cream; apply to affected areas on your legs twice daily for 7-10 days. Return to the emergency department for worsening symptoms, fever or other serious concerns. Referrals: NONE *PRIMARY CARE P,. [Primary Care Provider] - As per Instructions Prescriptions: Hydrocortisone 1% [Hydrocortisone 1% cream (*)] 14 gm TP BID #1 cream
== END 2016-08-30 23:02 | disposition left against medical advice (07) ==
DX: I82.401 Acute embolism and thrombosis of unspecified deep veins of right lower extremity (principal); I83.11 Varicose veins of right lower extremity with inflammation; I83.12 Varicose veins of left lower extremity with inflammation